=== PATIENT | female | born 1995 | race Caucasian/White ===

== ENCOUNTER 2017-12-07 06:28 | Emergency (ER) | payer MEDICAID | END 2017-12-07 07:03 | disposition home or self-care (01) | LOC: FTE 06:28 | DX: O9A.212 Injury, poisoning and certain other consequences of external causes complicating pregnancy, second trimester (principal); S80.862A Insect bite (nonvenomous), left lower leg, initial encounter; S80.861A Insect bite (nonvenomous), right lower leg, initial encounter; W57.XXXA Bitten or stung by nonvenomous insect and other nonvenomous arthropods, initial encounter; Z3A.21 21 weeks gestation of pregnancy | CPT/HCPCS: 99282; Z7502 ==

== ENCOUNTER 2017-12-28 19:50 | Emergency (ER) | payer MEDICAID | END 2017-12-28 20:14 | disposition home or self-care (01) | LOC: FTE 19:50 | DX: O26.891 Other specified pregnancy related conditions, first trimester (principal); R10.2 Pelvic and perineal pain; Z3A.16 16 weeks gestation of pregnancy | CPT/HCPCS: 99282; Z7502 ==

== ENCOUNTER 2017-12-28 20:20 | Outpatient (CLI) | payer MEDICAID ==
[2017-12-28 21:08] LABS: ADD UMIC NO; UR AMORPHOUS CRYSTAL FEW /HPF (NONE SEEN); UR ASCORBIC ACID NEGATIVE (NEGATIVE); UR BILIRUBIN (Dip) NEGATIVE (NEGATIVE); UR BLOOD (Dip) NEGATIVE (NEGATIVE); UR CLARITY SLIGHTLY CLOUDY (CLEAR); UR COLOR YELLOW (YELLOW); UR GLUCOSE (Dip) NEGATIVE (NEGATIVE); UR KETONES (Dip) NEGATIVE (NEGATIVE); UR LEUKOCYTE ESTERASE (Dip) NEGATIVE Leu/ul (NEGATIVE); UR NITRITE (Dip) NEGATIVE (NEGATIVE); UR RBC 1 /HPF (0-5); UR SPECIFIC GRAVITY (Dip) 1.011 (1.003-1.030); UR TOTAL PROTEIN (Dip) NEGATIVE (NEGATIVE); UR UROBILINOGEN (Dip) NEGATIVE (NEGATIVE); UR WBC 1 /HPF (0-5)
== END 2017-12-28 22:27 | disposition home or self-care (01) ==
LOC: OBT 20:20 → L-D 20:21
DX: O26.892 Other specified pregnancy related conditions, second trimester (principal); R10.2 Pelvic and perineal pain; Z3A.24 24 weeks gestation of pregnancy
CPT/HCPCS: 76817; 81001; 81003

== ENCOUNTER 2018-04-11 14:36 | Inpatient (IN) | payer MEDICAID ==
[2018-04-11] MEDS ORDERED: MISOPROSTOL 200 MCG TAB PR (18:00)
[2018-04-11] MEDS ORDERED: IBUPROFEN 600 MG TAB PO (18:00)
[2018-04-11] MEDS ORDERED: CARBOPROST 250 MCG INJ IM (18:00)
[2018-04-11] MEDS ORDERED: METHYLERGONOVINE 0.2 MG INJ IM (18:00)
[2018-04-11] MEDS ORDERED: LIDOCAINE 1% (MPF) 30 ML INJ INJ (18:00)
[2018-04-11] MEDS ORDERED: BUTORPHANOL 1 MG INJ IV (18:00)
[2018-04-11] MEDS ORDERED: BUTORPHANOL 2 MG INJ IV (18:00)
[2018-04-11] MEDS ORDERED: OXYTOCIN 30 UNITS/LR 500 ML IV ×2 (18:00)
[2018-04-11] MEDS: LACTATED RINGER'S 1,000 ML IV ×2 (18:30→19:37)
[2018-04-11 18:39] LABS: ADD MAN DIFF? NO
[2018-04-11 18:45] LABS: BASOPHILS % 0.5 % (0.0-2.0); EOSINOPHILS # 0.2 10^3/ul (0.0-0.5); EOSINOPHILS % 2.1 % (0.0-7.0); HEMOGLOBIN 11.5 g/dl (12.0-16.0); LYMPHOCYTES # 2.6 10^3/ul (0.8-2.9); LYMPHOCYTES % 29.9 % (15.0-51.0); MEAN CORPUSCULAR HEMOGLOBIN 26.4 pg (29.0-33.0); MEAN CORPUSCULAR HGB CONC 32.9 g/dl (32.0-37.0); MEAN CORPUSCULAR VOLUME 80.5 fl (82.0-101.0); MEAN PLATELET VOLUME 9.9 fl (7.4-10.4); MONOCYTE # 0.4 10^3/ul (0.3-0.9); MONOCYTES % 4.6 % (0.0-11.0); NEUTROPHIL # 5.4 10^3/ul (1.6-7.5); NEUTROPHILS % 62.6 % (39.0-77.0); PLATELET COUNT 233 10^3/UL (140-415); RED BLOOD COUNT 4.35 10^6/ul (4.20-5.40); RED CELL DISTRIBUTION WIDTH 13.2 % (11.5-14.5)
[2018-04-11 18:45] LABS: WHITE BLOOD COUNT 8.7 10^3/ul (4.8-10.8)
[2018-04-11 19:05] LABS: INR 0.84; PROTIME 11.6 Sec (11.9-14.9); PT RATIO 0.9
[2018-04-11 19:06] LABS: PARTIAL THROMBOPLASTIN TIME 26.6 Sec (23.0-35.0)
[2018-04-11 19:41] LABS: HEPATITIS B SURFACE ANTIGEN NEGATIVE (NEGATIVE)
[2018-04-11] MEDS ORDERED: FENTAnyl 2MCG/ML-ROPIV 0.2% 100 ML (19:46)
[2018-04-12] MEDS: LACTATED RINGER'S 1,000 ML IV (01:26)
[2018-04-12] MEDS ORDERED: DIPHENHYDRAMINE 50 MG INJ IV (03:30)
[2018-04-12] MEDS ORDERED: ONDANSETRON 4 MG INJ IV ×2 (03:30→05:00)
[2018-04-12] MEDS ORDERED: NALOXONE (0.4 MG/ML) INJ IV (03:30)
[2018-04-12] MEDS: FENTAnyl 2MCG/ML-ROPIV 0.2% 100 ML BAG EPI (03:36)
[2018-04-12] MEDS: OXYTOCIN 30 UNITS/LR 500 ML IV ×3 (04:21→08:57)
[2018-04-12] MEDS ORDERED: MISOPROSTOL 200 MCG TAB PR (05:00)
[2018-04-12] MEDS ORDERED: OXYTOCIN 30 UNITS/LR 500 ML IV (05:00)
[2018-04-12] MEDS ORDERED: DIBUCAINE 1% 30 GM OINT TOP (05:00)
[2018-04-12] MEDS ORDERED: MAGNESIUM HYDROXIDE 30ML CUP PO (05:00)
[2018-04-12] MEDS ORDERED: CARBOPROST 250 MCG INJ IM (05:00)
[2018-04-12] MEDS ORDERED: METHYLERGONOVINE 0.2 MG INJ IM (05:00)
[2018-04-12] MEDS: BENZOCAINE 20% 56 ML SPRAY TOP (08:50)
[2018-04-12] MEDS: WITCH HAZEL/GLYCERIN PAD PR (08:50)
[2018-04-12] MEDS: LANOLIN HPA 1 PKT TOP (08:51)
[2018-04-12] MEDS: SENNA/DOCUSATE NA (8.6MG/50MG) TAB PO ×2 (08:51→21:13)
[2018-04-12] MEDS: IBUPROFEN 600 MG TAB PO ×2 (08:52→15:57)
[2018-04-12] MEDS: LACTATED RINGER'S 1,000 ML IV* ×2 (08:58→13:47)
[2018-04-12] MEDS: INFLUENZA VIRUS VACCINE 0.5 ML (DISPENSING) IM* (13:47)
[2018-04-12 15:04] LABS: RAPID PLASMA REAGIN NONREACTIVE (NR)
[2018-04-12] MEDS: ACETAMINOPHEN 325 MG TAB PO (21:13)
[2018-04-13] MEDS: IBUPROFEN 600 MG TAB PO ×4 (01:11→17:45)
[2018-04-13] MEDS: ACETAMINOPHEN 325 MG TAB PO ×3 (01:17→20:00)
[2018-04-13 06:46] LABS: ADD MAN DIFF? NO
[2018-04-13 06:58] LABS: BASOPHILS % 0.3 % (0.0-2.0); EOSINOPHILS # 0.2 10^3/ul (0.0-0.5); EOSINOPHILS % 1.3 % (0.0-7.0); HEMOGLOBIN 10.9 g/dl (12.0-16.0); LYMPHOCYTES # 3.1 10^3/ul (0.8-2.9); LYMPHOCYTES % 20.7 % (15.0-51.0); MEAN CORPUSCULAR HEMOGLOBIN 26.6 pg (29.0-33.0); MEAN CORPUSCULAR VOLUME 80.5 fl (82.0-101.0); MEAN PLATELET VOLUME 9.6 fl (7.4-10.4); MONOCYTE # 0.6 10^3/ul (0.3-0.9); MONOCYTES % 3.8 % (0.0-11.0); NEUTROPHILS % 73.4 % (39.0-77.0); PLATELET COUNT 201 10^3/UL (140-415); RED CELL DISTRIBUTION WIDTH 13.6 % (11.5-14.5)
[2018-04-14] MEDS: IBUPROFEN 600 MG TAB PO ×2 (00:11→12:04)
[2018-04-14] MEDS: ACETAMINOPHEN 325 MG TAB PO (06:00)
[2018-04-14 12:39] LABS: ADD UMIC YES; UR ASCORBIC ACID NEGATIVE (NEGATIVE); UR BILIRUBIN (Dip) NEGATIVE (NEGATIVE); UR BLOOD (Dip) 2+ mg/dL (NEGATIVE); UR CLARITY CLEAR (CLEAR); UR COLOR STRAW (YELLOW); UR GLUCOSE (Dip) NEGATIVE (NEGATIVE); UR KETONES (Dip) NEGATIVE (NEGATIVE); UR LEUKOCYTE ESTERASE (Dip) NEGATIVE Leu/ul (NEGATIVE); UR NITRITE (Dip) NEGATIVE (NEGATIVE); UR RBC 40 /HPF (0-5); UR SPECIFIC GRAVITY (Dip) 1.009 (1.003-1.030); UR TOTAL PROTEIN (Dip) NEGATIVE (NEGATIVE); UR UROBILINOGEN (Dip) NEGATIVE (NEGATIVE); UR WBC 2 /HPF (0-5)
== END 2018-04-14 16:40 | disposition home or self-care (01) | DRG 807 ==
LOC: OBT 14:36 → PP1 04-12 06:30 → L-D 14:36 → OBT 17:40 → L-D 17:40
PROVIDERS: Obstetrics & Gynecology
PROC: 10E0XZZ Delivery of Products of Conception, External Approach (ICD-10-PCS; principal; 2018-04-12)
PROC: 0HQ9XZZ Repair Perineum Skin, External Approach (ICD-10-PCS; 2018-04-12)
DX: O70.0 First degree perineal laceration during delivery (principal); Z37.0 Single live birth; Z3A.38 38 weeks gestation of pregnancy
CPT/HCPCS: 62319; 76815; 76818; 81001; 85025; 85610; 85730; 86592; 86850; 86900; 86901; 87086; 87340

== ENCOUNTER 2018-06-19 02:51 | Emergency (ER) | payer MEDICAID ==
[2018-06-19] MEDS: ACETAMINOPHEN 500 MG TAB PO (04:31)
[2018-06-19] MEDS: IBUPROFEN 600 MG TAB PO (04:31)
[2018-06-19] MEDS: DEXAMETHASONE 10 MG/ML 1 ML INJ IM (04:32)
[2018-06-19] MEDS: PENICILLIN G BENZ 1.2 MIL UNIT SYG IM (05:22)
== END 2018-06-19 05:31 | disposition home or self-care (01) ==
LOC: FTE 02:51
DX: J02.0 Streptococcal pharyngitis (principal)
CPT/HCPCS: 87880; 96372; 99284-25